=== PATIENT | male | born 1960 | race Caucasian/White ===

== ENCOUNTER 2024-12-15 01:29 | Emergency (ER) | payer MEDICAID, OTHER ==
[~2024-12-15] VITALS: Ht 185.4 cm; Wt 84.6 kg
[2024-12-15] MEDS ORDERED: BACL20TA PO (02:28)
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
[2024-12-15 04:14] VITALS: BP 146/76; TEMP 98
[2024-12-15 04:21] VITALS: PULSE 78; RESP 14; O2SAT 95
== END 2024-12-15 04:24 | disposition home or self-care (01) ==
LOC: ER 01:29
DX: S16.1XXA Strain of muscle, fascia and tendon at neck level, initial encounter (principal); V49.88XA Car occupant (driver) (passenger) injured in other specified transport accidents, initial encounter; Y93.89 Activity, other specified; Y92.410 Unspecified street and highway as the place of occurrence of the external cause; Y99.8 Other external cause status

== ENCOUNTER 2025-07-01 01:33 | Emergency (ER) | payer SELFPAY ==
[~2025-07-01] VITALS: Ht 185.4 cm; Wt 72.7 kg
[~2025-07-01 01:33] MED LIST: BACL20TA PO
[2025-07-01] MEDS ORDERED: GABA-1308 PO (01:49)
--- NOTE | 2025-07-01 01:49 | ED.PDOC ---
HPI (NEURO) HPI Comments 65-year-old male presents to the ED chief complaint acute on chronic head pain to right occipital side x3 days. Patient reports current full workup on this pain states MRI head CT recent shows no reported acute concerns per patient's PCP. Patient was placed on baclofen and November has been taking the medication with no improvement. Describes as sharp shooting electric in nature 10/10 on pain scale. Patient denies numbness, weakness, slurred speech, difficulty breathing, chest pain, shortness of breath, or change in type of pain. Chief Complaint: Headache Time Seen by MD: 01:43 Reviewed Notes: Nurses Notes, Medications, Allergies Information Source: Patient Mode of Arrival: Ambulatory Past Medical History PAST MEDICAL HISTORY: Denies Surgical History: Denies all surgeries Family History Family History: Unknown Social History Smoker: Non-Smoker Alcohol: Denies ETOH Use Drugs: Denies Drug Use All Other Systems: Reviewed and Negative (see hpi) Physical Exam General Appearance: No Apparent Distress, Normal HEENT: Normal ENT Inspection, Pharynx Normal, TMs Normal Neck: Full Range of Motion, Non-Tender Respiratory: Lungs Clear, No Respiratory Distress, Normal Breath Sounds Cardiovascular: No Edema, No JVD, No Murmur, No Gallop, Normal Peripheral Pulses, Regular Rate/Rhythm Breast Exam: Deferred Gastrointestinal: No Organomegaly, Non Tender, No Pulsatile Mass, Normal Bowel Sounds, Soft Genitalia: Deferred Pelvic: Deferred Rectal: Deferred Extremities: Normal capillary refill, Normal range of motion, No pedal edema Musculoskeletal : Apperance: Normal Neurologic: Alert, No Motor Deficits, Normal Affect, Normal Mood, No Sensory Deficits Cerebellar Function: Normal Reflexes: NOT DONE Skin: Dry, Normal Color, Warm Lymphatic: No Adenopathy Was a procedure done? Was a procedure done?: No Differential Diagnosis (SZ) Headache: Cluster, Migraine, Epidural Hemorrhage, Intracerebral Hemorrhage, Subarachnoid Hemorrhage, Subdural Hemorrhage, Mass Lesion, Meningitis, Post- Traumatic, Trigeminal Neuralgia X-Ray, Labs, Meds, VS Vital Signs Date Time Temp Pulse Resp B/P (MAP) Pulse Ox O2 Delivery O2 Flow Rate FiO2 07/01/25 01:35 98.3 99 16 131/71 97 98.3 X-Ray, Labs, Meds, VS Comment Patient given Toradol she has been g IM, Decadron 10 mg IM, and [place] p.o.. Reports improvement in pain function requesting discharge at this time. Script trial of gabapentin this is likely more nerve in nature. Advised to follow up with his PCP if gabapentin helps advised to continue prescription. Advised on ER return precautions patient indicates understanding and agrees with discharge plan of care. Time of 1ST Reevaluation: 01:43 Reevaluation 1ST: Unchanged Time of 2ND Reevaluation: 02:10 Reevaluation 2ND: Improved Patient Education/Counseling: Diagnosis, Treatment, Prognosis, Need For Follow Up Family Education/Counseling: No Family Present Departure 1 Departure Time of Disposition: 01:47 Impression: Primary Impression: Head ache Qualified Codes: R51.9 - Headache, unspecified; G89.29 - Other chronic pain Disposition: 01 HOME / SELF CARE / HOMELESS Condition: Stable e-Prescriptions Gabapentin (Gabapentin) 100 Mg Cap 2 CAP PO HS PRN for 7 Days, #14 CAP Prov: LILIAM CROFT 07/01/25 Discharged With: Self Critical Care Note Critical Care Time?: No Stability Stability form required: LILIAM Rivas Jul 01, 2025 01:49
[2025-07-01 03:04] VITALS: BP 116/66; PULSE 90; RESP 12; TEMP 99.3; O2SAT 94
[2025-07-01] MEDS: HYDROcodone-ACET 5/325MG TAB PO ONE (03:18)
[2025-07-01] MEDS: KETOROLAC TROMETH 60MG/2ML VIAL IM ONE (03:18)
== END 2025-07-01 02:08 | disposition home or self-care (01) ==
LOC: ER 01:33
DX: G89.29 Other chronic pain (principal); R51.9 Headache, unspecified
CPT/HCPCS: 96372; 99284; J1100; J1885

== ENCOUNTER 2025-07-04 05:48 | Emergency (ER) | payer MEDICAID, OTHER ==
[~2025-07-04] VITALS: Ht 185.4 cm; Wt 74.5 kg
[~2025-07-04 05:48] MED LIST changes: +GABA-1308 PO
[2025-07-04 05:50] VITALS: TEMP 98.4
--- NOTE | 2025-07-04 06:50 | ED.PDOC ---
HPI (NEURO) HPI Comments 65-year-old male presents to the ER with a chief complaint of non traumatic headache. Patient reports on being released from his chiropractor two weeks ago and three days later had right occipital low pain which has been sharp and persistent since. Denies any other symptoms at this time. Denies persistent nausea Denies vomiting Denies thunderclap headache Denies photophobia, phonophobia Denies head trauma around the time headache started Denies family history of brain issues persistent headaches Denies taking any blood thinner medication Denies vision/hearing changes Denies focal loss of strength/sensation or changes in speech Chief Complaint: Headache Time Seen by MD: 06:45 Reviewed Notes: Nurses Notes, Medications, Allergies Information Source: Patient Mode of Arrival: Ambulatory Severity: Moderate Headache Severity: Moderate Timing: Hours Duration: Since onset, Hours Prehospital treatment: None Headache Quality: Sharp Headache Location: Occipital (Right) Onset: At rest Circumstances: Spontaneous Symptoms: None Before: Normal During: Awake After: Headache History of: None Associated Signs and Symptoms: Headache Past Medical History PAST MEDICAL HISTORY: Denies Surgical History: Denies all surgeries Family History Family History: Reviewed,noncontributory to illness, Unknown Social History Smoker: Non-Smoker Alcohol: Denies ETOH Use Drugs: Denies Drug Use Lives In: Home Constitutional: denies: chills, diaphoresis, fatigue, fever, malaise, sweats, weakness, others EENTM: denies: blurred vision, double vision, ear bleeding, ear discharge, ear drainage, ear pain, ear ringing, eye pain, eye redness, hearing loss, mouth pain, mouth swelling, nasal discharge, nose bleeding, nose congestion, nose pain, photophobia, tearing, throat pain, throat swelling, voice changes, others Respiratory: denies: cough, hemoptysis, orthopnea, SOB at rest, shortness of breath, SOB with excertion, stridor, wheezing, others Cardiovascular: denies: chest pain, dizzy spells, diaphoresis, Dyspnea on exertion, edema, irregular heart beat, left arm pain, lightheadedness, palpitations, PND, syncope, others Gastrointestinal: denies: abdomen distended, abdominal pain, blood streaked bowels, constipated, diarrhea, dysphagia, difficulty swallowing, hematemesis, melena, nausea, poor appetite, poor fluid intake, rectal bleeding, rectal pain, vomiting, others Genitourinary: denies: burning, dysuria, flank pain, frequency, hematuria, incontinence, penile discharge, penile sore, pain, testicle pain, testicle swelling, urgency, others Neurological: reports: headache; denies: dizziness, fainting, left sided numbness, left sided weakness, numbness, paresthesia, pre-existing deficit, right sided numbness, right sided weakness, seizure, speech problems, tingling, tremors, weakness, others Musculoskeletal: denies: back pain, gout, joint pain, joint swelling, muscle pain, muscle stiffness, neck pain, others Integumetry: denies: bruises, change in color, change in hair/nails, dryness, laceration, lesions, lumps, rash, wounds, others Allergic/Immunocompromised: denies: Difficulty Healing, Frequent Infections, Hives, Itching, others Hematologic/Lymphatic: denies: anemia, blood clots, easy bleeding, easy bruising, swollen glands, others Endocrine: denies: excessive hunger, excessive sweating, excessive thirst, excessive urination, flushing, intolerance to cold, intolerance to heat, unexplained weight gain, unexplained weight loss, others Psychiatric: denies: anxiety, bipolar disorder, depression, hopeless, panic disorder, schizophrenia, sleepless, suicidal, others All Other Systems: Reviewed and Negative Physical Exam Exam Comments TTP to the right occipital lobe, the head is normocephalic atraumatic. General Appearance: No Apparent Distress, Normal HEENT: Normal ENT Inspection, Pharynx Normal, TMs Normal Neck: Full Range of Motion, Non-Tender, Normal, Normal Inspection Respiratory: Chest Non-Tender, Lungs Clear, No Accessory Muscle Use, No Respiratory Distress, Normal Breath Sounds Cardiovascular: No Edema, No JVD, No Murmur, No Gallop, Normal Peripheral Pu lses, Regular Rate/Rhythm Breast Exam: Deferred Gastrointestinal: No Organomegaly, Non Tender, No Pulsatile Mass, Normal Bowel Sounds, Soft Genitalia: Deferred Pelvic: Deferred Rectal: Deferred Extremities: No calf tenderness, Normal capillary refill, Normal inspection, Normal range of motion, Non-tender, No pedal edema Musculoskeletal : Location: Right Apperance: Normal Neurologic: Alert, senior manufacturing engineer II-XII nml as Tested, No Motor Deficits, Normal Affect, Normal Mood, No Sensory Deficits, Other (Pronator drift negative) Cerebellar Function: Normal Reflexes: Normal Skin: Dry, Normal Color, Warm Lymphatic: No Adenopathy Was a procedure done? Was a procedure done?: No Differential Diagnosis (SZ) Seizure: Other Headache: Cluster, Migraine, Closed Head Injury, Post-Traumatic, Trigeminal Neuralgia X-Ray, Labs, Meds, VS Vital Signs Date Time Temp Pulse Resp B/P (MAP) Pulse Ox O2 Delivery O2 Flow Rate FiO2 07/04/25 07:26 92 18 115/67 (83) 92 07/04/25 07:26 92 18 92 Room Air 07/04/25 05:50 98.4 101 20 132/69 93 98.4 Lab Test 07/04/25 07:13 Range/Units White Blood Count 16.0 H 4.4-10.8 10^3/uL Red Blood Count 4.87 4.5-5.90 10^6/uL Hemoglobin 14.7 13.5-17.5 g/dL Hematocrit 43.0 41.0-53.0 % Mean Corpuscular Volume 88.3 80.0-100.0 fL Mean Corpuscular Hemoglobin 30.1 28.0-32.0 pg Mean Corpuscular Hemoglobin Concent 34.1 32.0-36.0 g/dL Red Cell Distribution Width 14.2 11.8-14.3 % Platelet Count 475 H 140-450 10^3/uL Mean Platelet Volume 6.9 6.9-10.8 fL Neutrophils (%) (Auto) 81.4 H 37.0-80.0 % Lymphocytes (%) (Auto) 8.9 L 10.0-50.0 % Monocytes (%) (Auto) 8.4 0.0-12.0 % Eosinophils (%) (Auto) 0.8 0.0-7.0 % Basophils (%) (Auto) 0.5 0.0-2.0 % Neutrophils # (Auto) 13.1 H 1.6-8.6 10 ^3/uL Lymphocytes # (Auto) 1.4 0.4-5.4 10 ^3/uL Monocytes # (Auto) 1.3 0-1.3 10 ^3/uL Eosinophils # (Auto) 0.1 0-0.8 10 ^3/uL Basophils # (Auto) 0.1 0-0.2 10 ^3/uL Nucleated Red Blood Cells 0.0 % Sodium Level 141 136-145 mmol/L Potassium Level 4.3 3.5-5.1 mmol/L Chloride Level 104 98-107 mmol/L Carbon Dioxide Level 29 20-31 mmol/L Anion Gap 8 5-15 Blood Urea Nitrogen 24 H 9-23 mg/dL Creatinine 1.13 0.700-1.30 mg/dL Glomerular Filtration Rate Calc 73 >90 mL/min BUN/Creatinine Ratio 21.2 H 10.0-20.0 Serum Glucose 100 74-106 mg/dL Calcium Level 8.9 8.7-10.4 mg/dL X-Ray, Labs, Meds, VS Comment 65-year-old male presents to the ER with a chief complaint of headache. Patient arrives alert and oriented, ABC's intact, afebrile, vital signs stable, saturating well in room air Peripheral IV insertion+ labs were ordered. CBC was ordered to exclude anemia, blood loss, or infection. BMP was ordered to exclude electrolyte abnormalities, renal failure, dehydration, hyperglycemia Diagnostic imaging ordered by me and results interpreted by radiology : CT of the head CBC likely reactive. Pt non toxic no non ill appearing. VSS The patients history and physical exam are consistent with a benign headache. Likely MSK. Considered subarachnoid hemorrhage however this is less likely given that the patient has had a similar and worst headaches in the past, the lack of trauma, and the slow onset with intermittent symptomatology. Low suspicion of meningitis given the afebrile, well-appearing, and without men ingismus on exam. Additionally no history of recent trauma prior to the patient experiencing this headache. Finally, the patient does not report any positional exacerbation with the headaches and has not had a recent spinal procedures therefore my suspicion for central causes and post procedural etiologies of headaches are less likely. Low concern for meningitis as there are no signs of fever, altered mentation nor neck stiffness. Brudzinski/Kernig negative. Low concern for subarachnoid hemorrhage there are no signs of a thunderclap headache Low concern for subdural hematoma and intracranial hemorrhage as there is no history of trauma, progressively worsening headache and neuroexam is unremarkable. Low suspicion for brain tumor as neuroexam is unremarkable. No nausea vomiting. No morning or nocturnal headache. No suspicion for temporal arteritis as there are no signs of fever, muscle weakness, jaw claudication, no transient visual loss. Patient was overall well-appearing and hemodynamically stable in the ED. They were able to ambulate and continued to have a nonfocal exam in the emergency department. Discussed continued symptomatic treatment at home. Recommended follow up with PCP. Return precautions to the ED discussed Patient is stable for discharge at this time. External notes reviewed. Test results and diagnostic imaging interpreted. All diagnostic findings, discharge care, education and instructions provided Follow-up with PCP in 2 to 3 days Patient verbalized understanding and agreed to treatment plan Vital signs stable, afebrile, no acute distress noted Patient ambulatory with strong steady gait Advised to return precautions for any new or worsening symptoms, return to ER immediately for re-evaluation Patient is aware that the purpose of this visit was for an acute medical emergency requiring emergent stabilization. Chronic conditions, including malignancies have not been ruled out. Patient is instructed to follow up with PCP as directed and discharge instructions for continued care and workup. If unable to arrange follow-up, patient is to return to the emergency department for reassessment. Patient (parent or legal guardian if applicable) was given verbal and written discharge instructions and acknowledges understanding. Additional MDM Review of External, Non-ED records: External records reviewed. Discussion with independent historian (EMS, family) history obtained from the patient/parents (if applicable) at bedside Chronic conditions affecting care: None Social determinants of health affecting care: None Consideration of admission (observation or admission): I considered escalation of care to admission for this patient, however given the reassuring workup, the patient is safe for outpatient management. Discussion with the Radiology: No Tests considered but not performed: Prescription medication considered but not given: Time of 1ST Reevaluation: 07:15 Reevaluation 1ST: Improved Patient Education/Counseling: Diagnosis, Treatment, Prognosis Family Education/Counseling: No Family Present Departure 1 Departure Time of Disposition: 08:36 Impression: Primary Impression: Headache Qualified Codes: R51.9 - Headache, unspecified Disposition: HOME / SELF CARE / HOMELESS Condition: Fair e-Prescriptions Tramadol HCl (Tramadol HCl) 50 Mg Tab 50 MG PO Q8HP PRN for 3 Days, #9 TAB 0 Refills Prov: LEXIE BACA HEAD OF ENGLISH 07/04/25 Methocarbamol (Methocarbamol) 500 Mg Tab 500 MG PO Q8HP PRN for 10 Days, #30 TAB 0 Refills Prov: PHUONGLEXIE TRIMBLE NP 07/04/25 Discharged With: Self Critical Care Note Critical Care Time?: No Stability Stability form required: No Heart Score Heart Score: Heart Score Response (Comments) Value History N/A 0 EKG N/A 0 Age N/A 0 Risk Factors N/A 0 Troponin N/A 0 Total 0 I personally scribed for LEXIE BACA NP ([email or web address]) on 07/04/25 at 06:50. Electronically submitted by Logan Lyon ([email or web address]). I personally scribed for LEXIE BACA NP ([email or web address]) on 07/04/25 at 07:06. Electronically submitted by Logan Lyon ([email or web address]). LEXIE BACA NP Jul 04, 2025 06:50
[2025-07-04 07:26] VITALS: BP 115/67; PULSE 92; RESP 18; O2SAT 92
--- NOTE | 2025-07-04 07:27 | DVH ---
CLINICAL INFORMATION: Headache. TECHNIQUE: Axial imaging was obtained through the brain without contrast. Coronal and sagittal reform atted images were obtained, reviewed, and stored. Images were reviewed in brain and bone windows. Al l CT scans at this medical facility are performed using dose modulation techniques as appropriate to a performed exam including the following: Automated exposure control was utilized; adjustment of the MA and/or KV according to patient size; and use of iterative reconstruction technique. CTDIvol = 53.8 mGy DLP = 1167.96 mGy-cm COMPARISON: None FINDINGS: There is no acute intracranial hemorrhage. No mass effect or midline shift. Scattered areas of hypoattenuation are seen in the periventricular and subcortical white matter, which are nonspecif ic but most likely sequelae of small vessel ischemic disease. The ventricles and sulci are within nor mal limits in size for age. Basal cisterns are patent. The calvarium is unremarkable. Paranasal sinu ses and mastoid air cells are clear. IMPRESSION: 1. No CT evidence of acute intracranial abnormality. 2. Nonacute findings as described above.
[2025-07-04 07:31] LABS: Nucleated Red Blood Cells % 0.0 %
[2025-07-04 07:35] LABS: Hematocrit 43.0 % (41.0-53.0); Hemoglobin 14.7 g/dL (13.5-17.5); Mean Corpuscular Hemoglobin 30.1 pg (28.0-32.0); Mean Corpuscular Volume 88.3 fL (80.0-100.0)
[2025-07-04 07:41] LABS: Chloride 104 mmol/L (98-107); Potassium 4.3 mmol/L (3.5-5.1); Sodium 141 mmol/L (136-145)
[2025-07-04 07:42] LABS: Anion Gap 8 (5-15); Calcium 8.9 mg/dL (8.7-10.4); Carbon Dioxide 29 mmol/L (20-31)
[2025-07-04 07:47] LABS: BUN/Creatinine Ratio 21.2 (10.0-20.0); Blood Urea Nitrogen 24 mg/dL (9-23); Glucose 100 mg/dL (74-106)
[2025-07-04] MEDS ORDERED: METH-1181 PO (08:51)
[2025-07-04] MEDS ORDERED: TRAM-626 PO (08:51)
== END 2025-07-04 08:58 | disposition home or self-care (01) ==
LOC: ER 05:48
DX: R51.9 Headache, unspecified (principal)
CPT/HCPCS: 36415; 70450; 80048; 85025